=== PATIENT | female | born 1990 | race Caucasian/White ===

== ENCOUNTER 2018-07-02 14:50 | Emergency (ER) | payer OTHER ==
[2018-07-02] MEDS ORDERED: Ketorolac 30 MG/ML SDV IVPUSH ONE (15:33)
[2018-07-02] MEDS ORDERED: Sodium Chloride 0.9% 1,000 ML IV ONE (15:33)
[2018-07-02 16:28] LABS: CHLORIDE,CL 106 mmol/L (98-107); SODIUM,NA 141 mmol/L (136-145)
[2018-07-02] MEDS ORDERED: Ondansetron 4 MG/2 ML SDV IVPUSH ONE (17:14)
--- NOTE | 2018-07-02 18:21 | US ---
INDICATION: Abdominal pain TECHNIQUE: Ultrasound abdomen limited. Sonographic images of the right upper quadrant were obtained using meng-scale and color Doppler images. COMPARISON: None FINDINGS: Liver: Normal in size and echotexture. No masses. No intrahepatic biliary dilatation. Gallbladder: No stones or sludge. Normal wall thickness. No pericholecystic fluid. Common bile duct: 3 mm. Pancreas: Normal. Right kidney: Normal in size. Normal echotexture and cortex. No masses, stones, or hydronephrosis. Vasculature: Proximal abdominal aorta and IVC are normal. IMPRESSION: Unremarkable right upper quadrant ultrasound. Dictated by Gunner Morris MD @ Jul 02 2018 6:17PM Signed by Dr. Gunner Morris @ Jul 02 2018 6:19PM
--- NOTE | 2018-07-02 18:32 | EDM.PDOC ---
ED HPI GENERAL MEDICAL PROBLEM - General Chief Complaint: Genitourinary Problem Stated Complaint: KIDNEY INFECTION Time Seen by Provider: 07/02/18 18:32 Source of Information: Reports: Patient - History of Present Illness INITIAL COMMENTS - FREE TEXT/NARRATIVE: HISTORY AND PHYSICAL: History of present illness: []Patient presents with vague complaints which have waxed and waned for quite some time over the last 5-7 years greasy and fatty foods seem to trigger pain and discomfort she is essentially weaned herself from fatty foods although she does use ranch dressing on salad switch cause nausea She has a complaint of burning with urination today and right flank pain 3 out of 10 nonradiating She had vomited on Tuesday she has no current fever nausea vomiting diarrhea constipation chest pain shortness breath headache dizziness or palpitation no bowel symptoms She has a history of previous HIDA scan in 2011 which I do not have results for however symptoms are very consistent with a gallbladder problem in a young female and should probably consider another HIDA scan As 7 years have elapsed Review of systems: As per history of present illness and below otherwise all systems reviewed and negative. Past medical history: As per history of present illness and as reviewed below otherwise noncontributory. Surgical history: As per history of present illness and as reviewed below otherwise noncontributory. Social history: No reported history of drug or alcohol abuse. Family history: As per history of present illness and as reviewed below otherwise noncontributory. Physical exam: HEENT: Atraumatic, normocephalic, pupils reactive, negative for conjunctival pallor or scleral icterus, mucous membranes moist, throat clear, neck supple, nontender, trachea midline. Lungs: Clear to auscultation, breath sounds equal bilaterally, chest nontender. Heart: S1S2, regular, negative for clicks, rubs, or JVD. Abdomen: Soft, nondistended, nontender. Negative for masses or hepatosplenomegaly. Negative for costovertebral tenderness. Pelvis: Stable nontender. Genitourinary: Deferred. Rectal: Deferred. Extremities: Atraumatic, negative for cords or calf pain. Neurovascular unremarkable. Neuro: Awake, alert, oriented. Cranial nerves II through XII unremarkable. Cerebellum unremarkable. Motor and sensory unremarkable throughout. Exam nonfocal. Diagnostics: [EBC CMP lipase UA GC chlamydia urine culture performed even though dipstick urine is normal ] Therapeutics: [None [place] diet Follow-up Gen. surgery for consideration of HIDA scan ] Impression: [ vague abdominal pains associated with food Inserting for biliary colic symptoms] Definitive disposition and diagnosis as appropriate pending reevaluation and review of above. Right Lower Abdomen Pain Score (Numeric/FACES): 7 - Related Data Allergies Allergy/AdvReac Type Severity Reaction Status Date / Time No Known Allergies Allergy Verified 07/02/18 15:11 Past Medical History Genitourinary History: Reports: UTI, Recurrent Psychiatric History: Reports: Depression - Past Surgical History Female Surgical History: Reports: None Social & Family History - Family History Family Medical History: Noncontributory - Tobacco Use Smoking Status *Q: Never Smoker Second Hand Smoke Exposure: No - Caffeine Use Caffeine Use: Reports: Coffee - Recreational Drug Use Recreational Drug Use: No ED ROS GENERAL - Review of Systems Review Of Systems: See Below ED EXAM, GENERAL - Physical Exam Exam: See Below Course - Vital Signs Last Recorded V/S: Last Vital Signs Temp 98.0 F 07/02/18 15:11 Pulse 71 07/02/18 17:40 Resp 18 07/02/18 17:40 BP 133/67 07/02/18 17:40 Pulse Ox 97 07/02/18 17:40 - Orders/Labs/Meds Orders: Active Orders 24 hr Category Date Time Status CHLAMYDIA AND GONORRHEA BY TMA Stat Lab 07/02/18 16:44 Received CULTURE URINE [RM] Stat Lab 07/02/18 18:32 Ordered Labs: Laboratory Tests 07/02/18 07/02/18 07/02/18 Range/Units 15:20 15:20 15:46 WBC 10.62 (4.0-11.0) K/uL RBC 4.72 (4.30-5.90) M/uL Hgb 14.9 (12.0-16.0) g/dL Hct 42.8 (36.0-46.0) % MCV 90.7 (80.0-98.0) fL MCH 31.6 (27.0-32.0) pg MCHC 34.8 (31.0-37.0) g/dL RDW Std Deviation 41.2 (28.0-62.0) fl RDW Coeff of Nikole 12 (11.0-15.0) % Plt Count 318 (150-400) K/uL MPV 10.20 (7.40-12.00) fL Neut % (Auto) 61.2 (48.0-80.0) % Lymph % (Auto) 28.9 (16.0-40.0) % [place] % (Auto) 8.3 (0.0-15.0) % Eos % (Auto) 1.3 (0.0-7.0) % Baso % (Auto) 0.3 (0.0-1.5) % Neut # (Auto) 6.5 H (1.4-5.7) K/uL Lymph # (Auto) 3.1 H (0.6-2.4) K/uL [place] # (Auto) 0.9 H (0.0-0.8) K/uL Eos # (Auto) 0.1 (0.0-0.7) K/uL Baso # (Auto) 0.0 (0.0-0.1) K/uL Nucleated RBC % 0.0 /100WBC Nucleated RBCs # 0 K/uL Sodium (136-145) mmol/L Potassium (3.5-5.1) mmol/L Chloride (98-107) mmol/L Carbon Dioxide (21.0-32.0) mmol/L BUN (7.0-18.0) mg/dL Creatinine (0.6-1.0) mg/dL Est Cr Clr Drug Dosing mL/min Estimated GFR (MDRD) ml/min Glucose (74-106) mg/dL Calcium (8.5-10.1) mg/dL Total Bilirubin (0.2-1.0) mg/dL AST (15-37) IU/L ALT (14-63) IU/L Alkaline Phosphatase (46-116) U/L Creatine Kinase (26-308) U/L Total Protein (6.4-8.2) g/dL Albumin (3.4-5.0) g/dL Globulin (2.6-4.0) g/dL Albumin/Globulin Ratio (0.9-1.6) Lipase (73-393) U/L Urine Color YELLOW Urine Appearance CLEAR Urine pH 7.5 (5.0-8.0) Ur Specific [place] 1.010 (1.001-1.035) Urine Protein NEGATIVE (NEGATIVE) mg/dL Urine Glucose (UA) NEGATIVE (NEGATIVE) mg/dL Urine Ketones NEGATIVE (NEGATIVE) mg/dL Urine Occult Blood NEGATIVE (NEGATIVE) Urine Nitrite NEGATIVE (NEGATIVE) Urine Bilirubin NEGATIVE (NEGATIVE) Urine Urobilinogen 0.2 (<2.0) EU/dL Ur Leukocyte Esterase NEGATIVE (NEGATIVE) Urine HCG, Qual NEGATIVE (NEGATIVE) 07/02/18 07/02/18 Range/Units 15:46 15:46 WBC (4.0-11.0) K/uL RBC (4.30-5.90) M/uL Hgb (12.0-16.0) g/dL Hct (36.0-46.0) % MCV (80.0-98.0) fL MCH (27.0-32.0) pg MCHC (31.0-37.0) g/dL RDW Std Deviation (28.0-62.0) fl RDW Coeff of Nikole (11.0-15.0) % Plt Count (150-400) K/uL MPV (7.40-12.00) fL Neut % (Auto) (48.0-80.0) % Lymph % (Auto) (16.0-40.0) % [place] % (Auto) (0.0-15.0) % Eos % (Auto) (0.0-7.0) % Baso % (Auto) (0.0-1.5) % Neut # (Auto) (1.4-5.7) K/uL Lymph # (Auto) (0.6-2.4) K/uL [place] # (Auto) (0.0-0.8) K/uL Eos # (Auto) (0.0-0.7) K/uL Baso # (Auto) (0.0-0.1) K/uL Nucleated RBC % /100WBC Nucleated RBCs # K/uL Sodium 141 (136-145) mmol/L Potassium 3.8 (3.5-5.1) mmol/L Chloride 106 (98-107) mmol/L Carbon Dioxide 24.8 (21.0-32.0) mmol/L BUN 10 (7.0-18.0) mg/dL Creatinine 0.8 (0.6-1.0) mg/dL Est Cr Clr Drug Dosing 95.05 mL/min Estimated GFR (MDRD) > 60.0 ml/min Glucose 105 (74-106) mg/dL Calcium 8.8 (8.5-10.1) mg/dL Total Bilirubin 0.5 (0.2-1.0) mg/dL AST 15 (15-37) IU/L ALT 21 (14-63) IU/L Alkaline Phosphatase 63 (46-116) U/L Creatine Kinase 89 (26-308) U/L Total Protein 7.5 (6.4-8.2) g/dL Albumin 4.0 (3.4-5.0) g/dL Globulin 3.5 (2.6-4.0) g/dL Albumin/Globulin Ratio 1.1 (0.9-1.6) Lipase 88 (73-393) U/L Urine Color Urine Appearance Urine pH (5.0-8.0) Ur Specific [place] (1.001-1.035) Urine Protein (NEGATIVE) mg/dL Urine Glucose (UA) (NEGATIVE) mg/dL Urine Ketones (NEGATIVE) mg/dL Urine Occult Blood (NEGATIVE) Urine Nitrite (NEGATIVE) Urine Bilirubin (NEGATIVE) Urine Urobilinogen (<2.0) EU/dL Ur Leukocyte Esterase (NEGATIVE) Urine HCG, Qual (NEGATIVE) Meds: Medications Discontinued Medications Generic Name Dose Route Start Last Admin Trade Name Sadiqq PRN Reason Stop Dose Admin Sodium Chloride 1,000 mls @ 999 mls/hr 07/02/18 15:33 07/02/18 15:52 Normal Saline IV 07/02/18 16:33 999 mls/hr STAT ONE Administration Ketorolac Tromethamine 30 mg 07/02/18 15:33 07/02/18 15:52 Toradol IVPUSH 07/02/18 15:34 30 mg ONETIME ONE Administration Ondansetron HCl 8 mg 07/02/18 17:14 07/02/18 17:38 Zofran IVPUSH 07/02/18 17:15 8 mg ONETIME ONE Administration Departure - Departure Time of Disposition: 18:35 Disposition: Home, Self-Care 01 Condition: Good Clinical Impression: Abdominal pain - Discharge Information Referrals: PCP,Unknown [Primary Care Provider] - Forms: ED Department Discharge Additional Instructions: [place] diet as discussed Return if symptoms persist or worsen or if new concerning symptoms develop Follow-up with general surgery call phone number below to schedule appropriate follow-up All up with gynecology as needed [facility] - General Surgery Professional Building [address] [place] [address], [address] [place] [address] The following information is given to patients seen in the emergency department who are being discharged to home. This information is to outline your options for follow-up care. We provide all patients seen in our emergency department with a follow-up referral. The need for follow-up, as well as the timing and circumstances, are variable depending upon the specifics of your emergency department visit. If you don't have a primary care physician on staff, we will provide you with a referral. We always advise you to contact your personal physician following an emergency department visit to inform them of the circumstance of the visit and for follow-up with them and/or the need for any referrals to a consulting specialist. The emergency department will also refer you to a specialist when appropriate. This referral assures that you have the opportunity for follow-up care with a specialist. All of these measure are taken in an effort to provide you with optimal care, which includes your follow-up. Under all circumstances we always encourage you to contact your private physician who remains a resource for coordinating your care. When calling for follow-up care, please make the office aware that this follow-up is from your recent emergency room visit. If for any reason you are refused follow-up, please contact the [facility] emergency department at and asked to speak to the emergency department charge nurse. - My Orders Last 24 Hours: My Active Orders 07/02/18 16:44 CHLAMYDIA AND GONORRHEA BY TMA Stat 07/02/18 18:32 CULTURE URINE [RM] Stat - Assessment/Plan Last 24 Hours: My Active Orders 07/02/18 16:44 CHLAMYDIA AND GONORRHEA BY TMA Stat 07/02/18 18:32 CULTURE URINE [RM] Stat
[2018-07-02 18:56] VITALS: BP 131/58
== END 2018-07-02 18:56 | disposition home or self-care (01) ==
LOC: MW.ED 14:50
DX: R10.31 Right lower quadrant pain (principal)
CPT/HCPCS: 36415; 76705; 80053; 81003; 81025; 82550; 83690; 85025; 87086; 87491; 87591; 96361; 96374; 96375; 99284; J1885; J2405; J7040; 99283

== ENCOUNTER 2018-07-13 12:49 | Day surgery (SDC) | payer OTHER ==
[~2018-07-13 12:49] MED LIST: Lactated Ringers 1,000 ML IV SCH; Sodium Chloride 0.9% 10 ML SDV IV PRN; Sodium Chloride 0.9% 10 ML Syringe FLUSH PRN; Sodium Chloride 0.9% 2.5 ML Syringe FLUSH PRN
--- NOTE | 2018-07-13 14:17 | PCM.PREANE ---
Preanesthetic Assessment - Anesthesia/Transfusion/Family Hx Anesthesia History: Prior Anesthesia Without Reaction Transfusion History: No Prior Transfusion(s) - Physical Assessment O2 Sat by Pulse Oximetry: 96 Respiratory Rate: 16 Vital Signs: Last Vital Signs Temp 36.8 C 07/13/18 13:43 Pulse 65 07/13/18 13:43 Resp 16 07/13/18 13:43 BP 116/56 L 07/13/18 13:43 Pulse Ox 96 07/13/18 13:43 Height: 1.65 m Weight: 109.316 kg - Lab Values: Laboratory Last Values Urine HCG, Qual NEGATIVE (NEGATIVE) 07/13/18 13:00 - Allergies Allergies/Adverse Reactions: Allergies Allergy/AdvReac Type Severity Reaction Status Date / Time No Known Allergies Allergy Verified 07/10/18 07:57 PreAnesthesia Questionnaire HEENT History: Reports: Other (See Below) Other HEENT History: wears glasses/contacts Cardiovascular History: Reports: None Respiratory History: Reports: None Gastrointestinal History: Reports: Other (See Below) Other Gastrointestinal History: intermittent abd pain Genitourinary History: Reports: None, UTI, Recurrent Musculoskeletal History: Reports: None Neurological History: Reports: None Psychiatric History: Reports: Depression Endocrine/Metabolic History: Reports: Obesity/BMI 30+ Hematologic History: Reports: None Immunologic History: Reports: None Oncologic (Cancer) History: Reports: None Dermatologic History: Reports: None - Past Surgical History Head Surgeries/Procedures: Reports: None HEENT Surgical History: Reports: Tonsillectomy Cardiovascular Surgical History: Reports: None Respiratory Surgical History: Reports: None GI Surgical History: Reports: None Female Surgical History: Reports: None Endocrine Surgical History: Reports: None Neurological Surgical History: Reports: None Musculoskeletal Surgical History: Reports: None Oncologic Surgical History: Reports: None Dermatological Surgical History: Reports: None - SUBSTANCE USE Smoking Status *Q: Former Smoker Recreational Drug Use History: No - HOME MEDS Home Medications: Home Meds Desvenlafaxine Succinate [Desvenlafaxine Succinate ER] 50 mg PO DAILY 07/10/18 [ History] - CURRENT (IN HOUSE) MEDS Current Meds: Current Medications Lactated Ringer's (Ringers, Lactated) 1,000 mls @ 125 mls/hr IV ASDIRECTED HEATH Last Admin: 07/13/18 13:53 Dose: 125 mls/hr Lactated Ringer's (Ringers, Lactated) 1,000 mls @ 125 mls/hr IV ASDIRECTED HEATH Sodium Chloride (Saline Flush) 10 ml FLUSH ASDIRECTED PRN PRN Reason: Keep Vein Open Sodium Chloride (Saline Flush) 2.5 ml FLUSH ASDIRECTED PRN PRN Reason: Keep Vein Open Sodium Chloride (Normal Saline) 10 ml IV ASDIRECTED PRN PRN Reason: IV Use
--- NOTE | 2018-07-13 14:17 | PCM.PREANE ---
Preanesthetic Assessment - Anesthesia/Transfusion/Family Hx Anesthesia History: Prior Anesthesia Without Reaction Transfusion History: No Prior Transfusion(s) - Review of Systems General: No Symptoms Pulmonary: No Symptoms Cardiovascular: No Symptoms Gastrointestinal: No Symptoms Neurological: No Symptoms Other: Reports: None - Physical Assessment O2 Sat by Pulse Oximetry: 96 Respiratory Rate: 16 Vital Signs: Last Vital Signs Temp 36.8 C 07/13/18 13:43 Pulse 65 07/13/18 13:43 Resp 16 07/13/18 13:43 BP 116/56 L 07/13/18 13:43 Pulse Ox 96 07/13/18 13:43 Height: 1.65 m Weight: 109.316 kg ASA Class: 3 Mental Status: Alert & Oriented x3 Airway Class: Mallampati = 2 Dentition: Reports: Normal Dentition Thyro-Mental Finger Breadths: 3 Mouth Opening Finger Breadths: 3 ROM/Head Extension: Full Lungs: Clear to Auscultation, Normal Respiratory Effort Cardiovascular: Regular Rate, Regular Rhythm - Lab Values: Laboratory Last Values Urine HCG, Qual NEGATIVE (NEGATIVE) 07/13/18 13:00 - Allergies Allergies/Adverse Reactions: Allergies Allergy/AdvReac Type Severity Reaction Status Date / Time No Known Allergies Allergy Verified 07/10/18 07:57 - Acknowledgements Anesthesia Type Planned: MAC Pt an Appropriate Candidate for the Planned Anesthesia: Yes Alternatives and Risks of Anesthesia Discussed w Pt/Guardian: Yes Pt/Guardian Understands and Agrees with Anesthesia Plan: Yes Additional Comments: The patient tolerated the procedure well. There were no apparent anesthetic complications at this time. PreAnesthesia Questionnaire HEENT History: Reports: Other (See Below) Other HEENT History: wears glasses/contacts Cardiovascular History: Reports: None Respiratory History: Reports: None Gastrointestinal History: Reports: Other (See Below) Other Gastrointestinal History: intermittent abd pain Genitourinary History: Reports: None, UTI, Recurrent Musculoskeletal History: Reports: None Neurological History: Reports: None Psychiatric History: Reports: Depression Endocrine/Metabolic History: Reports: Obesity/BMI 30+ Hematologic History: Reports: None Immunologic History: Reports: None Oncologic (Cancer) History: Reports: None Dermatologic History: Reports: None - Past Surgical History Head Surgeries/Procedures: Reports: None HEENT Surgical History: Reports: Tonsillectomy Cardiovascular Surgical History: Reports: None Respiratory Surgical History: Reports: None GI Surgical History: Reports: None Female Surgical History: Reports: None Endocrine Surgical History: Reports: None Neurological Surgical History: Reports: None Musculoskeletal Surgical History: Reports: None Oncologic Surgical History: Reports: None Dermatological Surgical History: Reports: None - SUBSTANCE USE Smoking Status *Q: Former Smoker Recreational Drug Use History: No - HOME MEDS Home Medications: Home Meds Desvenlafaxine Succinate [Desvenlafaxine Succinate ER] 50 mg PO DAILY 07/10/18 [ History] - CURRENT (IN HOUSE) MEDS Current Meds: Current Medications Lactated Ringer's (Ringers, Lactated) 1,000 mls @ 125 mls/hr IV ASDIRECTED HEATH Last Admin: 07/13/18 13:53 Dose: 125 mls/hr Lactated Ringer's (Ringers, Lactated) 1,000 mls @ 125 mls/hr IV ASDIRECTED HEATH Sodium Chloride (Saline Flush) 10 ml FLUSH ASDIRECTED PRN PRN Reason: Keep Vein Open Sodium Chloride (Saline Flush) 2.5 ml FLUSH ASDIRECTED PRN PRN Reason: Keep Vein Open Sodium Chloride (Normal Saline) 10 ml IV ASDIRECTED PRN PRN Reason: IV Use
[2018-07-13] MEDS ORDERED: Lidocaine 2% 5 ML SDV ONE (17:54)
[2018-07-13] MEDS ORDERED: fentaNYL 100 MCG/2 ML SDV ONE (17:55)
[2018-07-13] MEDS ORDERED: Propofol 200 MG/20 ML SDV ONE (17:55)
[2018-07-13] MEDS ORDERED: Midazolam 1 MG/ML 2 ML SDV ONE (17:55)
--- NOTE | 2018-07-13 18:37 | PCM.OPNOTE ---
- General Post-Op/Procedure Note Date of Surgery/Procedure: 07/13/18 Operative Procedure(s): egd w bx Findings: see dict [id number] Pre Op Diagnosis: abd pain and bloating Post-Op Diagnosis: gerd Anesthesia Technique: Moderate Sedation Primary Surgeon: Braden Carr Pathology: sent Complications: None Condition: Good
--- NOTE | 2018-07-13 19:00 | PCM.POSTAN ---
POST ANESTHESIA ASSESSMENT - MENTAL STATUS Mental Status: Alert, Oriented - RESPIRATORY Respiratory Status: Respiratory Rate WNL, Airway Patent, O2 Saturation Stable - CARDIOVASCULAR CV Status: Pulse Rate WNL, Blood Pressure Stable - GASTROINTESTINAL GI Status: No Symptoms - POST OP HYDRATION Hydration Status: Adequate & Stable - OBSERVATIONS Free Text/Narrative:: The patient tolerated the procedure well. There were no apparent anesthetic complications at this time.
[2018-07-13 19:37] VITALS: BP 116/61
--- NOTE | 2018-07-14 01:50 | OR ---
SURGEON: Braden Carr MD DATE OF PROCEDURE: 07/13/2018 PREOPERATIVE DIAGNOSIS: Abdominal pain and bloating. POSTOPERATIVE DIAGNOSIS: Abdominal pain and bloating. PROCEDURE PERFORMED: EGD with biopsy. PRIMARY SURGEON: Braden Carr MD COMPLICATIONS: None. FINDINGS: 1. The patient is easily sedated with REGULATORY COMPLIANCE SPECIALIST and Diprivan. The patient is soundly snoring. 2. The patient's oropharynx and proximal esophagus are free of disease and distal esophagus at GE junction at 40 shows flame-like salmon-color change consistent with moderate acid reflux. Stomach rugae is normal in appearance. Antrum is a little bit inflamed. Duodenum is grossly normal. Scope retrieved back to the stomach and retroflexed to look at the fundus of stomach. There is no hiatal hernia. Biopsy done at antrum, body, and GE junction at 40 and sucked out the gas while scope pulling out. The patient has 2 tiny 1 mm polyps at the stomach and biopsied one them, and during the whole study, there is no blood, ulcer, bile, food particle observed. PROCEDURE DETAILS: EGD: The patient was taken to the endoscopy room, and with the REGULATORY COMPLIANCE SPECIALIST, Diprivan was administered. A well-lubricated EGD scope was gently inserted through the oropharynx, down the esophagus, passing through the gastroesophageal junction, into the stomach. The mucosa was examined upon the passage. Any etiology will be noted. Once in the stomach, we continued to advance to the distal antrum, passed through the pylorus into the second portion of the duodenum. Again, the mucosa was examined for any abnormality and etiology. The scope was then retrieved back to the stomach and then retroflexed to look at the fundus of the stomach. If a biopsy was indicated, we will biopsy the antrum, body, and gastroesophageal junction. The air will be sucked out while the scope is retrieved to reduce the patient's discomfort. The patient tolerated the procedure well. There were no intraoperative complications. Dr. Carr was present through the whole procedure. Prior to surgery, a time-out had been called, the patient identified, procedure identified and antibiotic administered. FELIX / CARITO /[id number]
== END 2018-07-13 19:25 | disposition home or self-care (01) ==
LOC: MW.SDS 12:49
PROVIDERS: ATTEND Surgery
DX: K29.50 Unspecified chronic gastritis without bleeding (principal); K31.7 Polyp of stomach and duodenum; K21.9 Gastro-esophageal reflux disease without esophagitis; K22.8 Other specified diseases of esophagus; F32.9 Major depressive disorder, single episode, unspecified; Z79.899 Other long term (current) drug therapy
CPT/HCPCS: 00731; 81025; J2001; J2250; J2704; J3010; J7120

== ENCOUNTER 2018-12-08 10:43 | Emergency (ER) | payer OTHER ==
[2018-12-08 10:57] VITALS: BP 126/88
[2018-12-08] MEDS ORDERED: Lidocaine 2% Viscous Solution 15 ML Cup PO ONE (11:41)
[2018-12-08] MEDS ORDERED: Benzocaine 20% Topical Spray UD MUCMEM ONE (11:41)
--- NOTE | 2018-12-08 11:42 | EDM.PDOC ---
ED HPI GENERAL MEDICAL PROBLEM - General Chief Complaint: General Stated Complaint: RIGHT JAW PAIN Time Seen by Provider: 12/08/18 11:24 Source of Information: Reports: Patient History Limitations: Reports: No Limitations - History of Present Illness INITIAL COMMENTS - FREE TEXT/NARRATIVE: History of present illness: []She has had right lower molar dental pain since July. She states it's worse today, no fevers, no facial swelling but pain on right side of her face. Review of systems: As per history of present illness and below otherwise all systems reviewed and negative. Past medical history: As per history of present illness and as reviewed below otherwise noncontributory. Surgical history: As per history of present illness and as reviewed below otherwise noncontributory. Social history: No reported history of drug or alcohol abuse. Family history: As per history of present illness and as reviewed below otherwise noncontributory. Physical exam: General: Well developed, well nourished in NAD HEENT: Atraumatic, normocephalic, pupils reactive, negative for conjunctival pallor or scleral icterus, mucous membranes moist, throat clear, neck supple, nontender, trachea midline. No erythema of the gingiva or purulent drainage or swelling noted Lungs: Clear to auscultation, breath sounds equal bilaterally, chest nontender. Heart: S1S2, regular, negative for clicks, rubs, or JVD. Abdomen: NABS, Soft, nondistended, nontender. Negative for masses or hepatosplenomegaly. Negative for costovertebral tenderness. Pelvis: Stable nontender. Genitourinary: Deferred. Rectal: Deferred. Extremities: Atraumatic, negative for cords or calf pain. Neurovascular unremarkable. Neuro: Awake, alert, oriented. Cranial nerves II through XII unremarkable. Cerebellum unremarkable. Motor and sensory unremarkable throughout. Exam nonfocal. Skin:warm and dry Diagnostics: None Therapeutics: dental Balls ED Course: stable Impression: Dental pain Prescriptions: Clindamycin, dental balls Plan: Take meds as directed, follow up with your primary care physician, return to ER if symptoms worsen or change. Definitive disposition and diagnosis as appropriate pending reevaluation and review of above. right jaw Pain Score (Numeric/FACES): 9 - Related Data Allergies Allergy/AdvReac Type Severity Reaction Status Date / Time No Known Allergies Allergy Verified 08/11/18 12:37 Home Meds: Home Meds Clindamycin HCl 300 mg PO TID #30 capsule 12/08/18 [Rx] PARoxetine HCl [Paxil Cr] 1 tab PO DAILY 12/08/18 [History] Past Medical History HEENT History: Reports: Other (See Below) Other HEENT History: wears glasses/contacts Cardiovascular History: Reports: None Respiratory History: Reports: None Gastrointestinal History: Reports: Other (See Below) Other Gastrointestinal History: intermittent abd pain Genitourinary History: Reports: None Musculoskeletal History: Reports: None Neurological History: Reports: None Psychiatric History: Reports: Depression Endocrine/Metabolic History: Reports: Obesity/BMI 30+ Hematologic History: Reports: None Immunologic History: Reports: None Oncologic (Cancer) History: Reports: None Dermatologic History: Reports: None - Past Surgical History Head Surgeries/Procedures: Reports: None Cardiovascular Surgical History: Reports: None Respiratory Surgical History: Reports: None GI Surgical History: Reports: None Female Surgical History: Reports: None Endocrine Surgical History: Reports: None Neurological Surgical History: Reports: None Musculoskeletal Surgical History: Reports: None Oncologic Surgical History: Reports: None Dermatological Surgical History: Reports: None Social & Family History - Family History Family Medical History: Noncontributory - Tobacco Use Smoking Status *Q: Never Smoker - Caffeine Use Caffeine Use: Reports: Coffee - Recreational Drug Use Recreational Drug Use: No ED ROS GENERAL - Review of Systems Review Of Systems: See Below ED EXAM, GENERAL - Physical Exam Exam: See Below Course - Vital Signs Last Recorded V/S: Last Vital Signs Temp 97.1 F 12/08/18 10:53 Pulse 72 12/08/18 10:53 Resp 20 12/08/18 10:53 BP 126/88 12/08/18 10:53 Pulse Ox 95 12/08/18 10:53 - Orders/Labs/Meds Meds: Medications Discontinued Medications Generic Name Dose Route Start Last Admin Trade Name Freq PRN Reason Stop Dose Admin Benzocaine 2 each 12/08/18 11:41 Hurricaine One 20% MUCMEM 12/08/18 11:42 ONETIME ONE Lidocaine HCl 15 ml 12/08/18 11:41 Xylocaine 2% Viscous PO 12/08/18 11:42 ONETIME ONE Departure - Departure Time of Disposition: 11:44 Disposition: Home, Self-Care 01 Condition: Good Clinical Impression: Chronic dental pain Clinical Impression: (Ruled Out): Dental implant pain - Discharge Information *PRESCRIPTION DRUG MONITORING PROGRAM REVIEWED*: Not Applicable *COPY OF PRESCRIPTION DRUG MONITORING REPORT IN PATIENT INGRID: Not Applicable Prescriptions: Clindamycin HCl 300 mg PO TID #30 capsule Referrals: PCP,None [Primary Care Provider] - Forms: ED Department Discharge Additional Instructions: The following information is given to patients seen in the emergency department who are being discharged to home. This information is to outline your options for follow-up care. We provide all patients seen in our emergency department with a follow-up referral. The need for follow-up, as well as the timing and circumstances, are variable depending upon the specifics of your emergency department visit. If you don't have a primary care physician on staff, we will provide you with a referral. We always advise you to contact your personal physician following an emergency department visit to inform them of the circumstance of the visit and for follow-up with them and/or the need for any referrals to a consulting specialist. The emergency department will also refer you to a specialist when appropriate. This referral assures that you have the opportunity for follow-up care with a specialist. All of these measure are taken in an effort to provide you with optimal care, which includes your follow-up. Under all circumstances we always encourage you to contact your private physician who remains a resource for coordinating your care. When calling for follow-up care, please make the office aware that this follow-up is from your recent emergency room visit. If for any reason you are refused follow-up, please contact the [facility] Emergency Department at and asked to speak to the emergency department charge nurse. Take meds as directed, follow up with your primary care physician, return to ER if symptoms worsen or change. [facility] [place] [id number]
[2018-12-08 17:49] VITALS: PULSE 70
== END 2018-12-08 11:53 | disposition home or self-care (01) ==
LOC: MW.ED 10:43
DX: K08.89 Other specified disorders of teeth and supporting structures (principal); G89.29 Other chronic pain; F32.9 Major depressive disorder, single episode, unspecified; E66.9 Obesity, unspecified; Z68.38 Body mass index [BMI] 38.0-38.9, adult; Z79.899 Other long term (current) drug therapy
CPT/HCPCS: 99282; A9270

== ENCOUNTER 2021-09-17 06:36 | Emergency (ER) | payer BC ==
[2021-09-17] MEDS ORDERED: Acetaminophen 325 MG Tab PO ONE (07:03)
[2021-09-17 07:50] VITALS: BP 142/71; PULSE 97
== END 2021-09-17 08:03 | disposition home or self-care (01) ==
LOC: MW.ED 06:36
DX: U07.1 COVID-19 (principal); E66.9 Obesity, unspecified; Z68.39 Body mass index [BMI] 39.0-39.9, adult
CPT/HCPCS: 81003; 81025; 87635; 99284; A9270; 99283; U0002

== ENCOUNTER 2024-05-15 09:27 | Inpatient (IN) | payer BC ==
[2024-05-15] MEDS ORDERED: Sodium Chloride 0.9% 10 ML Syringe FLUSH PRN (09:51)
[2024-05-15 10:01] LABS: APPEARANCE,URINE CLEAR; BILIRUBIN,URINE NEGATIVE (NEGATIVE); COLOR,URINE YELLOW; GLUCOSE,URINE NEGATIVE (NEGATIVE); KETONES,URINE NEGATIVE (NEGATIVE); LEUKOCYTE ESTERASE,URINE NEGATIVE (NEGATIVE); NITRITE,URINE NEGATIVE (NEGATIVE); OCCULT BLOOD,URINE SMALL (NEGATIVE); PROTEIN,URINE NEGATIVE (NEGATIVE); UROBILINOGEN,URINE 0.2 EU/dL (<2.0)
[2024-05-15 10:03] LABS: BASOPHILS ABSOLUTE AUTO 0.07 K/uL (0.00-0.20); BASOPHILS PERCENT AUTO 0.3 % (0.0-1.0); EOSINOPHILS ABSOLUTE AUTO 0.01 K/uL (0.00-0.45); HEMATOCRIT 44.3 % (37.0-47.0); HEMOGLOBIN 15.9 g/dL (12.0-16.0); IMMATURE GRAN PERCENT AUTO 0.4 % (0.0-0.4); LYMPHOCYTES ABSOLUTE AUTO 1.48 K/uL (1.00-4.80); LYMPHOCYTES PERCENT AUTO 5.6 % (24.0-44.0); MEAN CORPUSCULAR HEMOGLOBIN 32.3 pg (28.0-32.0); MEAN CORPUSCULAR HGB CONC 35.9 g/dL (32.0-36.0); MEAN PLATELET VOLUME 9.9 fL (9.4-12.3); MONOCYTES ABSOLUTE AUTO 1.39 K/uL (0.00-0.80); MONOCYTES PERCENT AUTO 5.3 % (0.0-8.0); NEUTROPHILS ABSOLUTE AUTO 23.23 K/uL (1.80-7.70); NEUTROPHILS PERCENT AUTO 88.4 % (41.0-71.0); PLATELET COUNT,PLT 328 K/uL (150-400); RED BLOOD CELL COUNT 4.92 M/uL (4.10-5.30); WHITE BLOOD CELL COUNT,WBC 26.28 K/uL (3.9-11.3)
[2024-05-15] MEDS: Ondansetron 4 MG/2 ML SDV IVPUSH ONE (10:06)
[2024-05-15] MEDS: Sodium Chloride 0.9% 1,000 ML IV ONE ×2 (10:06→14:36)
[2024-05-15 10:12] LABS: BACTERIA,URINE FEW (NEGATIVE); EPITHELIAL CELLS,URINE OCCASIONAL (NONE-FEW); RBC,URINE 0-2 (0-2/HPF); WBC,URINE 0-2 (0-5/HPF)
[2024-05-15 10:23] LABS: A/G RATIO 1.1 (0.9-1.6); ALANINE AMINOTRANSFERASE,ALT 35 IU/L (14-63); ALBUMIN 4.4 g/dL (3.4-5.0); ALKALINE PHOSPHATASE 65 U/L (46-116); ASPARTATE AMNIOTRANSFERASE,AST 22 IU/L (15-37); BILIRUBIN TOTAL 0.7 mg/dL (0.2-1.0); BLOOD UREA NITROGEN,BUN 10 mg/dL (7.0-18.0); CALCIUM 9.5 mg/dL (8.5-10.1); CARBON DIOXIDE,CO2 23.7 mmol/L (21.0-32.0); CHLORIDE,CL 99 mmol/L (98-107); CREATININE 0.9 mg/dL (0.6-1.0); ESTIMATED GFR 87 mL/min (>60); GLUCOSE RANDOM 126 mg/dL (74-106); LIPASE 28 U/L (16-77); POTASSIUM,K 4.1 mmol/L (3.5-5.1); PROTEIN TOTAL,TP 8.3 g/dL (6.4-8.2); SODIUM,NA 137 mmol/L (136-145)
[2024-05-15] MEDS: Iopamidol 755 MG/ML 500 ML Multipack Bottle IVPUSH ONE (11:18)
[2024-05-15] MEDS: Cefepime 2 GM in Sodium Chloride 0.9% 50 ML IV ONE (11:22)
[2024-05-15] MEDS: Ketorolac 30 MG/ML SDV IVPUSH ONE (11:22)
[2024-05-15 12:49] LABS: CANDIDA DNA PROBE NEGATIVE (NEGATIVE); GARDNERELLA DNA PROBE NEGATIVE (NEGATIVE); TRICHOMONAS DNA PROBE NEGATIVE (NEGATIVE)
[2024-05-15 13:11] LABS: C. TRACHOMATIS BY PCR NOT DETECTED; N. GONORRHOEAE BY PCR NOT DETECTED
[2024-05-15] MEDS ORDERED: Naloxone 0.4 MG/ML SDV IVPUSH PRN ×2 (14:10→16:22)
[2024-05-15] MEDS: fentaNYL 100 MCG/2 ML SDV IVPUSH ONE (14:35)
[2024-05-15] MEDS: Acetaminophen 1,000 MG in Premix Bag 1 BAG IV ONE (16:45)
[2024-05-15] MEDS: Lactated Ringers 1,000 ML IV SCH (16:46)
[2024-05-15] MEDS: Ketorolac 30 MG/ML SDV IVPUSH SCH (17:54)
[2024-05-15] MEDS: cefTRIAXone 1 GM in Sodium Chloride 0.9% 50 ML IV SCH (21:57)
[2024-05-15] MEDS ORDERED: Acetaminophen 1,000 MG in Premix Bag 1 BAG IV PRN (22:00)
[2024-05-15] MEDS: Desvenlafaxine Succinate 25 MG TAB.ER PO SCH (22:27)
[2024-05-15] MEDS: Doxycycline 100 MG in Sodium Chloride 0.9% 100 ML IV SCH (22:27)
[2024-05-15] MEDS: metroNIDAZOLE/Normal Saline 500 MG in Premix Bag 1 BAG IV SCH (23:53)
[2024-05-16 06:45] LABS: BASOPHILS ABSOLUTE AUTO 0.04 K/uL (0.00-0.20); BASOPHILS PERCENT AUTO 0.4 % (0.0-1.0); HEMATOCRIT 35.9 % (37.0-47.0); HEMOGLOBIN 12.4 g/dL (12.0-16.0); IMMATURE GRAN ABSOLUTE AUTO 0.02 K/uL (0.00-0.05); IMMATURE GRAN PERCENT AUTO 0.2 % (0.0-0.4); LYMPHOCYTES ABSOLUTE AUTO 1.68 K/uL (1.00-4.80); LYMPHOCYTES PERCENT AUTO 16.6 % (24.0-44.0); MEAN CORPUSCULAR HEMOGLOBIN 31.7 pg (28.0-32.0); MEAN CORPUSCULAR HGB CONC 34.5 g/dL (32.0-36.0); MEAN CORPUSCULAR VOLUME 91.8 fL (83.0-99.0); MEAN PLATELET VOLUME 10.1 fL (9.4-12.3); MONOCYTES ABSOLUTE AUTO 0.54 K/uL (0.00-0.80); MONOCYTES PERCENT AUTO 5.3 % (0.0-8.0); NEUTROPHILS ABSOLUTE AUTO 7.74 K/uL (1.80-7.70); NEUTROPHILS PERCENT AUTO 76.5 % (41.0-71.0); PLATELET COUNT,PLT 206 K/uL (150-400); RED BLOOD CELL COUNT 3.91 M/uL (4.10-5.30); WHITE BLOOD CELL COUNT,WBC 10.12 K/uL (3.9-11.3)
[2024-05-16 07:26] LABS: ALBUMIN 3.2 g/dL (3.4-5.0); BILIRUBIN TOTAL 0.5 mg/dL (0.2-1.0); CALCIUM 8.4 mg/dL (8.5-10.1); CARBON DIOXIDE,CO2 20.6 mmol/L (21.0-32.0); CREATININE 0.7 mg/dL (0.6-1.0); EST CRCL DRUG DOSING (CG) 98.71 mL/min; POTASSIUM,K 3.7 mmol/L (3.5-5.1); PROTEIN TOTAL,TP 6.4 g/dL (6.4-8.2)
[2024-05-16] MEDS: fentaNYL 50 MCG/ML SDV IVPUSH PRN (08:36)
[2024-05-16] MEDS: Acetaminophen 1,000 MG in Premix Bag 1 BAG IV ONE (10:30)
[2024-05-16 16:06] VITALS: BP 138/85; PULSE 81
[2024-05-16] MEDS ORDERED: Desvenlafaxine Succinate 25 MG TAB.ER PO SCH (21:00)
== END 2024-05-16 21:13 | disposition home or self-care (01) | DRG 531 ==
LOC: MW.ED 09:27 → MW.MS 14:53 → INTOOBSV 14:53 → OBSVTOIN 14:54
PROVIDERS: ADMIT Obstetrics & Gynecology; ATTEND Obstetrics & Gynecology
DX: N73.9 Female pelvic inflammatory disease, unspecified (principal); F32.A Depression, unspecified; E66.9 Obesity, unspecified; F17.210 Nicotine dependence, cigarettes, uncomplicated; Z79.899 Other long term (current) drug therapy; Z68.38 Body mass index [BMI] 38.0-38.9, adult; Z90.89 Acquired absence of other organs
CPT/HCPCS: 36415; 74177; 74177-26; 80053; 81001; 81025; 83605; 83690; 85025; 87040; 87480; 87491; 87510; 87591; 87660; 96361; 96365; 96375; 96376; 99231; 99239; 99284; 99285-25; A9270-GY; G0378; J0131; J0692; J0696; J1836; J1885; J2405; J3010; J3490; J7030; J7120; Q9967

== ENCOUNTER 2025-01-09 16:35 | Emergency (ER) | payer BC ==
[2025-01-09 17:07] LABS: BASOPHILS ABSOLUTE AUTO 0.02 K/uL (0.00-0.20); BASOPHILS PERCENT AUTO 0.2 % (0.0-1.0); EOSINOPHILS ABSOLUTE AUTO 0.01 K/uL (0.00-0.45); EOSINOPHILS PERCENT AUTO 0.1 % (0.0-6.0); IMMATURE GRAN ABSOLUTE AUTO 0.02 K/uL (0.00-0.05); IMMATURE GRAN PERCENT AUTO 0.2 % (0.0-0.4); LYMPHOCYTES ABSOLUTE AUTO 3.33 K/uL (1.00-4.80); LYMPHOCYTES PERCENT AUTO 33.4 % (24.0-44.0); MEAN PLATELET VOLUME 9.9 fL (9.4-12.3); MONOCYTES ABSOLUTE AUTO 0.59 K/uL (0.00-0.80); MONOCYTES PERCENT AUTO 5.9 % (0.0-8.0); NEUTROPHILS ABSOLUTE AUTO 5.99 K/uL (1.80-7.70); NEUTROPHILS PERCENT AUTO 60.2 % (41.0-71.0); NRBC ABSOLUTE 0.00 K/uL (0.00-0.02); NRBC PERCENT 0.0 /100WBC (0.0-0.2); PLATELET COUNT,PLT 326 K/uL (150-400); RED BLOOD CELL COUNT 5.39 M/uL (4.10-5.30); WHITE BLOOD CELL COUNT,WBC 9.96 K/uL (3.9-11.3)
[2025-01-09] MEDS: Iopamidol 755 MG/ML 500 ML Multipack Bottle IVPUSH STA (17:14)
[2025-01-09] MEDS: LORazepam 2 MG/ML SDV IVPUSH STA (17:24)
[2025-01-09 17:26] LABS: APPEARANCE,URINE CLEAR; GLUCOSE,URINE NEGATIVE (NEGATIVE); OCCULT BLOOD,URINE NEGATIVE (NEGATIVE)
[2025-01-09 17:27] LABS: INR 1.01 (0.86-1.11); PTT,PARTIAL THROMBOPLSTIN TIME 29.3 SEC (23.9-30.7)
[2025-01-09 17:48] LABS: A/G RATIO 1.3 (0.9-1.6); ALANINE AMINOTRANSFERASE,ALT 25 IU/L (14-63); ASPARTATE AMNIOTRANSFERASE,AST 27 IU/L (15-37); BILIRUBIN TOTAL 0.7 mg/dL (0.2-1.0); BLOOD UREA NITROGEN,BUN 7 mg/dL (7.0-18.0); CARBON DIOXIDE,CO2 25.4 mmol/L (21.0-32.0); CHLORIDE,CL 103 mmol/L (98-107); CREATININE 0.9 mg/dL (0.6-1.0); EST CRCL DRUG DOSING (CG) 76.06 mL/min; GLUCOSE RANDOM 93 mg/dL (74-106); POTASSIUM,K 3.5 mmol/L (3.5-5.1); PROTEIN TOTAL,TP 8.4 g/dL (6.4-8.2); SODIUM,NA 140 mmol/L (136-145); TSH ULTRASENSITIVE 3.29 uIU/mL (0.36-3.74)
[2025-01-09 17:50] LABS: ESTIMATED GFR 86 mL/min (>60)
[2025-01-09] MEDS: LORazepam 2 MG/ML SDV IVPUSH ONE (18:37)
[2025-01-09 18:51] VITALS: BP 134/94; PULSE 76
== END 2025-01-09 18:49 | disposition home or self-care (01) ==
LOC: MW.ED 16:35
DX: R07.9 Chest pain, unspecified (principal); I10 Essential (primary) hypertension; E66.9 Obesity, unspecified; E86.0 Dehydration; F17.200 Nicotine dependence, unspecified, uncomplicated; Z75.3 Unavailability and inaccessibility of health-care facilities; Z79.899 Other long term (current) drug therapy; Z90.710 Acquired absence of both cervix and uterus; Z68.33 Body mass index [BMI] 33.0-33.9, adult
CPT/HCPCS: 36415; 71275; 80053; 81003; 83690; 83735; 84443; 84484; 85025; 85610; 85730; 87428; 93005; 93970; 96361; 96374; 96376; 99285; A9270; J2060; J7030; Q9967; 93010; 99284